=== PATIENT | male | born 1970 | race Hispanic/Latino ===

== ENCOUNTER 2020-05-17 15:51 | Inpatient (IN) | payer BC ==
[~2020-05-17] VITALS: Ht 162.6 cm; Wt 81.8 kg
[2020-05-17 16:04] LABS: BASOPHILS % (AUTO) 0.4 % (0.0-5.0); HEMATOCRIT 48.4 % (42-54); LYMPHOCYTES % (AUTO) 8.9 % (21.0-51.0); MEAN CORPUSCULAR HEMOGLOBIN 30.5 pg (27.0-33.0); MEAN CORPUSCULAR HGB CONC 34.3 g/dL (32.0-36.0); MEAN CORPUSCULAR VOLUME 88.8 fL (79-99); NEUTROPHILS % (AUTO) 87.4 % (40.0-77.0); PLATELET COUNT (AUTO) 268 K/uL (130-400); RED BLOOD CELL COUNT(AUTO) 5.45 MIL/uL (4.50-6.20); RED CELL DISTRIBUTION WIDTH 13.4 % (11.0-15.5); WHITE BLOOD COUNT (AUTO) 12.2 K/uL (4.8-10.8)
[2020-05-17 16:13] LABS: CREATININE 1.1 mg/dL (0.5-1.5); POTASSIUM 3.6 mmol/L (3.5-5.1)
[2020-05-17 16:17] LABS: ALBUMIN 4.4 g/dL (3.5-5.0); BILIRUBIN,TOTAL 0.3 mg/dL (0.2-1.0); TOTAL PROTEIN, SERUM 8.3 g/dL (6.0-8.3)
[2020-05-17] MEDS ORDERED: METOPROLOL TARTRATE 1 MG/ML 5ML VIAL IV ONE (16:52)
[2020-05-17] MEDS ORDERED: MORPHINE SULFATE 2 MG/ML 1ML SYG IVP PRN (17:00)
[2020-05-17] MEDS ORDERED: ONDANSETRON HCL 4 MG/2 ML VIAL IVP PRN (17:00)
[2020-05-17] MEDS ORDERED: NITROGLYCERIN 50 MG/D5% WATER 1 BOT ONE (17:07)
[2020-05-17] MEDS ORDERED: NITROGLYCERIN 0.4 MG SL TAB SL PRN (17:15)
[2020-05-17] MEDS: SODIUM CHLORIDE 0.9% 1000ML 1,000 ML IV SCH (17:15)
[2020-05-17] MEDS ORDERED: HYDRALAZINE HCL 20 MG/ML VIAL IV PRN (17:15)
[2020-05-17] MEDS ORDERED: METOPROLOL TARTRATE 50 MG TAB ONE (17:16)
[2020-05-17] MEDS ORDERED: ENOXAPARIN SODIUM 80 MG/0.8 ML SQ ONE (17:55)
[2020-05-17 18:27] LABS: TROPONIN I 24.4 ng/mL (0.00-0.06)
[2020-05-17 18:30] VITALS: BP 158/92
[2020-05-17] MEDS ORDERED: LABETALOL HCL 5 MG/ML 20ML VIAL IV PRN (18:30)
[2020-05-17 19:00] VITALS: BP 155/96
--- NOTE | 2020-05-17 19:13 | NUR ---
PT WAS RECEIVED FROM ER PLACED IN DP 14. DR TOLBERT WAS NOTIFIED OF TROPONIN LEVEL 24.4. ORDERS GIVEN TO PREPARE PT FOR C IN AM. REPORT GIVEN TO DANIA FOY. PT ICU STATUS DUE TO NTG IV DRIP 15MCG/MIN
[2020-05-17] MEDS ORDERED: TICAGRELOR 90 MG TABLET PO SCH (19:30)
--- NOTE | 2020-05-17 19:48 | NUR ---
PER PT REQUEST I TOOK HIS HIS CLOTHES/WALLET/BOOTS TO TAKE HOME. SHE LEFT HIM HIS CELLPHONE AND PHYSICAL DIRECTOR
[2020-05-17 20:00] VITALS: BP 132/87
[2020-05-17 21:00] VITALS: BP 128/82
[2020-05-17] MEDS: METOPROLOL TARTRATE 25 MG TAB PO SCH (21:00)
[2020-05-17] MEDS: ATORVASTATIN CALCIUM 40 MG TABLET PO SCH (21:30)
[2020-05-17] MEDS: LISINOPRIL 2.5 MG TABLET PO SCH (21:30)
[2020-05-17 22:00] VITALS: BP 128/81
[2020-05-17 22:18] LABS: HEMOGLOBIN A1C 5.9 % (4.0-6.0)
[2020-05-17 23:00] VITALS: BP 117/79
[2020-05-17 23:26] LABS: AMPHET/METH SCREEN,URINE NEGATIVE (NEGATIVE); BARBITURATE SCREEN, URINE NEGATIVE (NEGATIVE); BENZODIAZEPINES SCREEN,URINE NEGATIVE (NEGATIVE); CANNABINOID SCREEN,URINE NEGATIVE (NEGATIVE); COCAINE SCREEN,URINE NEGATIVE (NEGATIVE); OPIATE SCREEN,URINE NEGATIVE (NEGATIVE); PHENCYCLIDINE SCREEN,URINE NEGATIVE (NEGATIVE)
[2020-05-18] VITALS (23 sets, daily range): BP systolic 108–141; BP diastolic 63–97
[2020-05-18] MEDS: ACETAMINOPHEN 325 MG TAB PO PRN ×2 (00:18→20:03)
[2020-05-18 03:21] LABS: BASOPHILS % (AUTO) 0.5 % (0.0-5.0); EOSINOPHILS % (AUTO) 1.2 % (0.0-8.0); LYMPHOCYTES % (AUTO) 21.5 % (21.0-51.0); MEAN CORPUSCULAR HEMOGLOBIN 30.2 pg (27.0-33.0); MEAN CORPUSCULAR VOLUME 88.7 fL (79-99); MONOCYTES % (AUTO) 7.7 % (3.0-13.0); NEUTROPHILS % (AUTO) 68.7 % (40.0-77.0); PLATELET COUNT (AUTO) 270 K/uL (130-400); RED CELL DISTRIBUTION WIDTH 13.3 % (11.0-15.5); WHITE BLOOD COUNT (AUTO) 10.8 K/uL (4.8-10.8)
[2020-05-18 03:43] LABS: ALBUMIN 3.9 g/dL (3.5-5.0); BILIRUBIN,TOTAL 0.7 mg/dL (0.2-1.0); POTASSIUM 3.2 mmol/L (3.5-5.1); THYROID STIMULATING HORMONE 1.08 uIU/mL (0.36-3.74); TOTAL PROTEIN, SERUM 7.6 g/dL (6.0-8.3)
[2020-05-18 04:15] LABS: INR 0.96 (0.85-1.15); PARTIAL THROMBOPLASTIN TIME 31.7 SEC (26.3-35.5); PROTHROMBIN TIME 10.4 SEC (9.6-11.6)
[2020-05-18] MEDS ORDERED: POTASSIUM CHLORIDE 20MEQ/100ML 100 ML IV PRN ×2 (04:15)
[2020-05-18] MEDS ORDERED: LIDOCAINE HCL-MPF 1% 2ML VIAL IV PRN ×2 (04:15)
[2020-05-18] MEDS ORDERED: POTASSIUM CHLORIDE 10% ELIXIR 20 MEQ/15 ML UDCUP PO PRN (04:15)
[2020-05-18] MEDS: SODIUM CHLORIDE 0.9% 1000ML 1,000 ML IV SCH (06:22)
[2020-05-18] MEDS: METOPROLOL TARTRATE 25 MG TAB PO SCH ×2 (09:03→19:54)
[2020-05-18] MEDS: LISINOPRIL 2.5 MG TABLET PO SCH ×2 (09:03→19:54)
[2020-05-18] MEDS: ASPIRIN 81MG TAB.CHEW PO SCH (09:03)
[2020-05-18] MEDS: ENOXAPARIN SODIUM 30 MG/0.3 ML SQ SCH (09:04)
[2020-05-18] MEDS ORDERED: SODIUM CHLORIDE 0.9% 500ML 500 ML IV SCH (09:15)
[2020-05-18] MEDS ORDERED: NITROGLYCERIN 2 MG/VIAL VIAL IV ONE (10:58)
[2020-05-18] MEDS ORDERED: LIDOCAINE HCL 2% 20ML ONE (10:58)
[2020-05-18] MEDS ORDERED: IOHEXOL 350 MG/ML 100ML INFUS..BTL IV ONE (10:58)
[2020-05-18] MEDS ORDERED: IOHEXOL-350 50ML VIAL IV ONE (10:58)
[2020-05-18] MEDS ORDERED: BIVALIRUDIN 250 MG/VIAL IV ONE (10:58)
[2020-05-18] MEDS ORDERED: MIDAZOLAM HCL 1 MG/ML 2ML VIAL ONE (10:59)
[2020-05-18] MEDS ORDERED: FENTANYL CITRATE PF 50 MCG/1 ML 2ML VIAL ONE (11:00)
[2020-05-18] MEDS ORDERED: SODIUM CHLORIDE 0.9% 1000ML 1,000 ML IV SCH (12:14)
[2020-05-18] MEDS ORDERED: TICAGRELOR 90 MG TABLET ONE ×2 (12:25→19:21)
--- NOTE | 2020-05-18 13:22 | NUR ---
DANIELLE PLAN PATIENT IN PROCEDURE. LALI WILL CONTINUE TO FOLLOW. Addendum: 05/18/20 at 1323 by TAMAR CLIFFORD RN CM Amended: Links added.
[2020-05-18] MEDS: ATORVASTATIN CALCIUM 40 MG TABLET PO SCH (19:53)
[2020-05-18] MEDS: TICAGRELOR 90 MG TABLET PO SCH (19:54)
[2020-05-18] MEDS: POTASSIUM CHLORIDE 20 MEQ ERTAB PO PRN ×2 (22:16→22:17)
[2020-05-19] MEDS ORDERED: MAGNESIUM 2GM PREMIX 50ML 50 ML IV PRN (00:45)
--- NOTE | 2020-05-19 01:30 | NUR ---
patient runs out of the room filled with sweat and says he is very hot. we check the blood sugar and it is 110. his blood pressure is 108/74 with a heart rate of 73. he denies any chest pain, palpitations, or dizziness. he claims he "just wants to shower." we will continue to monitor him
[2020-05-19 01:32] VITALS: BP 108/74
[2020-05-19 03:39] LABS: BASOPHILS % (AUTO) 0.5 % (0.0-5.0); EOSINOPHILS % (AUTO) 0.7 % (0.0-8.0); HEMATOCRIT 46.5 % (42-54); LYMPHOCYTES % (AUTO) 22.5 % (21.0-51.0); MEAN CORPUSCULAR HGB CONC 33.8 g/dL (32.0-36.0); MEAN CORPUSCULAR VOLUME 88.9 fL (79-99); PLATELET COUNT (AUTO) 255 K/uL (130-400); RED BLOOD CELL COUNT(AUTO) 5.23 MIL/uL (4.50-6.20); RED CELL DISTRIBUTION WIDTH 13.5 % (11.0-15.5); WHITE BLOOD COUNT (AUTO) 9.5 K/uL (4.8-10.8)
[2020-05-19 03:57] VITALS: BP 121/76
[2020-05-19 03:57] LABS: ALBUMIN 3.7 g/dL (3.5-5.0); BILIRUBIN,TOTAL 0.7 mg/dL (0.2-1.0); MAGNESIUM 2.2 mg/dL (1.80-2.40); POTASSIUM 4.1 mmol/L (3.5-5.1); TOTAL PROTEIN, SERUM 7.3 g/dL (6.0-8.3)
[2020-05-19] MEDS: METOPROLOL TARTRATE 25 MG TAB PO SCH (09:05)
[2020-05-19] MEDS: ASPIRIN 81MG TAB.CHEW PO SCH (09:05)
[2020-05-19] MEDS: TICAGRELOR 90 MG TABLET PO SCH (09:05)
[2020-05-19] MEDS: LISINOPRIL 2.5 MG TABLET PO SCH (09:05)
[2020-05-19] MEDS: ENOXAPARIN SODIUM 30 MG/0.3 ML SQ SCH (09:06)
[2020-05-19 09:25] VITALS: BP 100/67
== END 2020-05-19 11:33 | disposition home or self-care (01) | DRG 247 ==
LOC: EDH 15:51 → EDHIP 16:59 → DAHIP 19:26 → 4CH 05-18 17:07
PROVIDERS: ADMIT Hospitalist; ATTEND Hospitalist
PROC: 027034Z Dilation of Coronary Artery, One Artery with Drug-eluting Intraluminal Device, Percutaneous Approach (ICD-10-PCS; principal; 2020-05-18)
PROC: 4A023N7 Measurement of Cardiac Sampling and Pressure, Left Heart, Percutaneous Approach (ICD-10-PCS; 2020-05-18)
PROC: B2111ZZ Fluoroscopy of Multiple Coronary Arteries using Low Osmolar Contrast (ICD-10-PCS; 2020-05-18)
PROC: B2151ZZ Fluoroscopy of Left Heart using Low Osmolar Contrast (ICD-10-PCS; 2020-05-18)
DX: I21.4 Non-ST elevation (NSTEMI) myocardial infarction (principal); I10 Essential (primary) hypertension; E78.5 Hyperlipidemia, unspecified; E66.9 Obesity, unspecified; F17.200 Nicotine dependence, unspecified, uncomplicated; I25.10 Atherosclerotic heart disease of native coronary artery without angina pectoris; I25.2 Old myocardial infarction; Z68.31 Body mass index [BMI] 31.0-31.9, adult
CPT/HCPCS: 36415; 71045; 80053; 80061; 80305; 82550; 82948; 83036; 83735; 83874; 83880; 84443; 84484; 85025; 85610; 85730; 93005; 93306; 93356; 93458; 99156; 99157; 99291; C1760; C1769; C1887; C1894; C9600; G0378; J0583; J1644; J1650; J2250; J3010; J3480; J3490; J7030; Q9967

== ENCOUNTER → 2020-07-10 | Outpatient (CLI) | payer BC | END | disposition home or self-care (01) | LOC: SHCH 11:00 | PROVIDERS: ATTEND Internal Medicine Cardiovascular Disease | DX: I21.4 Non-ST elevation (NSTEMI) myocardial infarction (principal); I10 Essential (primary) hypertension | CPT/HCPCS: 93306; 93356 ==